=== PATIENT | female | born 1990 | race Asian ===

== ENCOUNTER 2020-12-01 12:41 | Inpatient (IN) | payer SELFPAY ==
[~2020-12-01] VITALS: Ht 167.6 cm; Wt 78.0 kg
[2020-12-01] MEDS ORDERED: HYDROMORPHONE 1 MG/1 ML DISP.SYRIN IV ONE (13:15)
[2020-12-01] MEDS ORDERED: ONDANSETRON 4 MG/2 ML VIAL IV ONE ×2 (13:15→19:30)
[2020-12-01] MEDS ORDERED: IV NORMAL SALINE 1000 ML BAG IV ONE (13:15)
--- NOTE | 2020-12-01 13:20 | NUR ---
DR. GUERRERO AT BEDSIDE.
[2020-12-01] MEDS ORDERED: ONDANSETRON 4 MG/2 ML VIAL ONE (13:30)
[2020-12-01 13:33] LABS: BASOPHILS # (AUTO) 0.1 K/uL (0.0-8.0); BASOPHILS % (AUTO) 0.6 % (0.0-2.0); HEMATOCRIT 35.1 % (31.2-41.9); HEMOGLOBIN 12.1 g/dL (10.9-14.3); LYMPHOCYTES # (AUTO) 1.3 K/uL (20.0-40.0); LYMPHOCYTES % (AUTO) 6.3 % (20.5-51.5); MEAN CORPUSCULAR HEMOGLOBIN 30.8 uug (24.7-32.8); MEAN CORPUSCULAR HGB CONC 34 g/dL (32.3-35.6); MEAN CORPUSCULAR VOLUME 89.5 fL (75.5-95.3); MONOCYTES # (AUTO) 0.5 K/uL (2.0-10.0); MONOCYTES % (AUTO) 2.3 % (0.0-11.0); NEUTROPHILS # (AUTO) 18.3 K/uL (1.8-8.9); NEUTROPHILS % (AUTO) 90.8 % (38.5-71.5); PLATELET COUNT (AUTO) 320 K/uL (179-408); RED BLOOD CELL COUNT(AUTO) 3.92 MIL/uL (3.63-4.92); WHITE BLOOD COUNT (AUTO) 20.2 K/uL (3.8-11.8)
[2020-12-01 13:41] LABS: CREATININE 0.9 mg/dL (0.6-1.3); POTASSIUM 3.6 mmol/L (3.5-5.1)
[2020-12-01] MEDS ORDERED: SEVOFLURANE 250 ML BOTTLE IH ONE (13:54)
[2020-12-01] MEDS ORDERED: BUPIVACAINE 0.25% 30 ML VIAL ONE (17:49)
--- NOTE | 2020-12-01 18:07 | NUR ---
surgery crew at bedside to transfer the pt to surgery.
[2020-12-01] MEDS ORDERED: FENTANYL CITRATE 100 MCG/2 ML AMPUL ONE (18:27)
[2020-12-01] MEDS ORDERED: ROCURONIUM BROMIDE 50 MG/5 ML VIAL ONE (18:28)
[2020-12-01] MEDS ORDERED: GLYCOPYRROLATE 0.2 MG/ML VIAL IJ ONE (19:30)
[2020-12-01] MEDS ORDERED: PROPOFOL 200 MG/20 ML BOTTLE IV ONE (19:30)
[2020-12-01] MEDS ORDERED: PHENYLEPHRINE 10 MG/1 ML VIAL IV ONE (19:30)
[2020-12-01] MEDS ORDERED: DEXAMETHASONE SOD PHOSPHATE 4 MG INJ IV ONE (19:30)
[2020-12-01] MEDS ORDERED: LIDOCAINE-MPF 2% 5 ML VIAL IJ ONE (19:30)
[2020-12-01] MEDS ORDERED: NEOSTIGMINE METHYLSULFATE 10 MG/10 ML VIAL IM ONE (19:30)
[2020-12-01] MEDS ORDERED: CEFAZOLIN 1 G VIAL IM ONE (19:30)
[2020-12-01] MEDS ORDERED: IV LACTATED RINGERS SOLUTION 1,000 ML IV PRN (20:15)
[2020-12-01] MEDS ORDERED: ONDANSETRON 4 MG/2 ML VIAL IV PRN (20:15)
[2020-12-01] MEDS ORDERED: HYDROMORPHONE 1 MG/1 ML DISP.SYRIN IV PRN (20:15)
[2020-12-01] MEDS ORDERED: HYDROMORPHONE 2 MG/1 ML DISP.SYRIN IV PRN (20:30)
--- NOTE | 2020-12-01 20:51 | NUR ---
Admitted a 30 y/o female to [facility] with admitting diagnosis of S/P Laparoscopy and Left salpingectomy. Admission assessment done, patient shows no s/s of respiratory distress, denies any pain or discomfort. IV access on R AC intact and patent. Dressing on lower abdomen intact, no soilage noted. Admission care rendered, belongings at bedside. With compression device on. Safety measures initiated, call light within reach, will continue to monitor.
[2020-12-01 21:55] VITALS: BP 118/78
[2020-12-02 04:10] VITALS: BP 106/69
--- NOTE | 2020-12-02 06:21 | NUR ---
Pt in bed, awake and verbally responsive, no s/s of respiratory distress, denies any pain or discomfort. Pt on diet as tolerated. Dressing intact, no soilage noted. Passed gas and urinated on her own. Safety measures maintained at all times, call light within reach, all needs attended.
[2020-12-02 09:44] LABS: BASOPHILS # (AUTO) 0.1 K/uL (0.0-8.0); BASOPHILS % (AUTO) 0.7 % (0.0-2.0); HEMATOCRIT 24.6 % (31.2-41.9); HEMOGLOBIN 8.9 g/dL (10.9-14.3); LYMPHOCYTES # (AUTO) 2.2 K/uL (20.0-40.0); LYMPHOCYTES % (AUTO) 17.2 % (20.5-51.5); MEAN CORPUSCULAR HEMOGLOBIN 32.2 uug (24.7-32.8); MEAN CORPUSCULAR HGB CONC 36 g/dL (32.3-35.6); MEAN CORPUSCULAR VOLUME 89.3 fL (75.5-95.3); MONOCYTES # (AUTO) 0.7 K/uL (2.0-10.0); MONOCYTES % (AUTO) 5.1 % (0.0-11.0); NEUTROPHILS # (AUTO) 9.8 K/uL (1.8-8.9); PLATELET COUNT (AUTO) 227 K/uL (179-408); RED BLOOD CELL COUNT(AUTO) 2.76 MIL/uL (3.63-4.92); WHITE BLOOD COUNT (AUTO) 12.8 K/uL (3.8-11.8)
[2020-12-02 09:46] LABS: CREATININE 0.7 mg/dL (0.6-1.3); POTASSIUM 3.3 mmol/L (3.5-5.1)
[2020-12-02] MEDS ORDERED: POTASSIUM CHLORIDE 20 MEQ TAB.PRT.SR PO ONE (11:30)
[2020-12-02] MEDS ORDERED: FERROUS SULFATE 325 MG TABEC PO SCH (11:30)
[2020-12-02 11:57] VITALS: BP 98/62
[2020-12-02] MEDS ORDERED: FERR325T28 PO (12:15)
[2020-12-02] MEDS ORDERED: ASCO500T21 PO (12:15)
[2020-12-02 12:43] LABS: *URINE HCG, QUAL POS (NEGATIVE)
--- NOTE | 2020-12-02 13:50 | NUR ---
D/C TO HOME WITH IN NO ACUTE DISTRESS. D/C INSTRUCTIONS GIVEN VERBALIZED UNDERSTANDING. NO BLEEDING AT THIS TIME. INCISION SITE IN ORIGINAL DRSG FROM SX. WILL F/ WITH SURGEON IN ONE WEEK. D/C MEDS CALLED IN TO PHARMACY
[2020-12-03] MEDS ORDERED: ASCORBIC ACID 500 MG TABLET PO SCH (09:00)
== END 2020-12-02 13:45 | disposition home or self-care (01) | DRG 818 ==
LOC: ER 12:41 → DS 18:14 → MEDSURG3 18:59
PROVIDERS: ADMIT Nurse Practitioner Family; ATTEND Nurse Practitioner Family
PROC: 10T28ZZ Resection of Products of Conception, Ectopic, Via Natural or Artificial Opening Endoscopic (ICD-10-PCS; principal; 2020-12-01)
PROC: 0UB64ZZ Excision of Left Fallopian Tube, Percutaneous Endoscopic Approach (ICD-10-PCS; 2020-12-01)
DX: O00.112 Left tubal pregnancy with intrauterine pregnancy (principal); E87.1 Hypo-osmolality and hyponatremia; D72.829 Elevated white blood cell count, unspecified; E87.6 Hypokalemia
CPT/HCPCS: 36415; 76856; 84703; 85025; 85730; 86850; 86900; 86901; A4663; G0378; J0690; J1100; J2370; J2405; J3010; J3490

== ENCOUNTER → 2021-02-17 | Outpatient (CLI) | payer BC, OTHER ==
[~2021-02-17] MED LIST: ASCO500T21 PO; FERR325T28 PO
[2021-02-17 21:17] LABS: HEMATOCRIT 33.4 % (31.2-41.9); MEAN CORPUSCULAR HEMOGLOBIN 28.7 uug (24.7-32.8); MEAN CORPUSCULAR VOLUME 85.8 fL (75.5-95.3); PLATELET COUNT (AUTO) 252 K/uL (179-408)
[2021-02-20 02:06] LABS: RUBELLA AB, IgG 3.42 index (Immune >0.99)
== END | disposition home or self-care (01) ==
LOC: LAB 06:56
PROVIDERS: ATTEND Obstetrics & Gynecology
DX: N91.0 Primary amenorrhea (principal); Q99.2 Fragile X chromosome; Z33.1 Pregnant state, incidental; Z20.2 Contact with and (suspected) exposure to infections with a predominantly sexual mode of transmission; Z31.430 Encounter of female for testing for genetic disease carrier status for procreative management
CPT/HCPCS: 36415; 84443; 85025; 86592; 86762; 86803; 86850; 86900; 86901; 87340; 87806